=== PATIENT | male | born 1995 | race Caucasian/White ===

== ENCOUNTER 2020-11-29 07:17 | Emergency (ER) | payer OTHER ==
[~2020-11-29] VITALS: Ht 177.8 cm; Wt 99.8 kg
[~2020-11-29 07:17] MED LIST: CEPHALEXIN500 MG PO; IBUPROFEN800 MG PO; VICODIN 5-3001 EACH PO
[2020-11-29] MEDS ORDERED: PAIN RELIEF500 M1 PO (07:30)
[2020-11-29] MEDS ORDERED: CYCLOBENZAPRINE10 MG PO (07:54)
== END 2020-11-29 08:02 | disposition home or self-care (01) ==
LOC: ED 07:17
DX: M54.5 Low back pain (principal); Z88.0 Allergy status to penicillin
CPT/HCPCS: 99283

== ENCOUNTER 2021-07-16 07:59 | Emergency (ER) | payer OTHER ==
[~2021-07-16] VITALS: Ht 177.8 cm; Wt 104.6 kg
[~2021-07-16 07:59] MED LIST changes: +CYCLOBENZAPRINE10 MG PO; +PAIN RELIEF500 M1 PO
== END 2021-07-16 08:51 | disposition home or self-care (01) ==
LOC: ED 07:59
DX: S60.221A Contusion of right hand, initial encounter (principal); W21.89XA Striking against or struck by other sports equipment, initial encounter; Z88.0 Allergy status to penicillin
CPT/HCPCS: 73130; 99283-25

== ENCOUNTER 2021-07-17 08:00 | Emergency (ER) | payer OTHER ==
[~2021-07-17] VITALS: Ht 177.8 cm; Wt 103.4 kg
--- OUTSIDE RECORDS SUMMARY | 2021-07-17 08:08 | XMS ---
PreManage Notification: LESLEE TORRES Security [employer] Events No recent Security Events currently on file CRITERIA MET - [facility] - 2 Visits in 30 Days CARE PROVIDERS There are no care providers on record at this time. Pramod has no Care Guidelines for this patient. Corrie VISIT COUNT (12 MO.) 3 [facility] TOTAL 3 NOTE: Visits indicate total known visits. ED/C VISIT TRACKING (12 MO.) 07/17/2021 08:00 [facility] [place] TYPE: Emergency COMPLAINT: - R HAND PAIN 07/16/2021 08:00 [facility] [place] TYPE: Emergency COMPLAINT: - R HAND PAIN/INJURY 11/29/2020 07:17 [facility] [place] TYPE: Emergency COMPLAINT: - BACK PAIN DIAGNOSES: - Low back pain - Low back pain - Pain in thoracic spine - Allergy status to penicillin INPATIENT VISIT TRACKING (12 MO.) No inpatient visits to display in this time frame [email or web address]
== END 2021-07-17 08:39 | disposition home or self-care (01) ==
LOC: ED 08:00
DX: S63.501A Unspecified sprain of right wrist, initial encounter (principal); S60.221A Contusion of right hand, initial encounter; Z88.0 Allergy status to penicillin; W22.8XXA Striking against or struck by other objects, initial encounter; Y93.C1 Activity, computer keyboarding; Y92.89 Other specified places as the place of occurrence of the external cause
CPT/HCPCS: 99283